=== PATIENT | male | born 1985 | race Caucasian/White ===

== ENCOUNTER 2018-01-12 16:26 | Emergency (ER) | payer SELFPAY ==
[~2018-01-12] VITALS: Ht 167.6 cm; Wt 74.4 kg
[~2018-01-12 16:26] MED LIST: ALB0.5 IH; ALBU2.5V36 INH; ALBU8.5H IH; BUDE1AMP2 IH; CEPH250C37 PO; CETI-176 PO; DUL100/5PT INH; DULERAPT INH; FLUT1DIS28 IH; IPRA3AMP21 IH; IPRA3AMP37 IH; METH4TAB66 PO; MONT10TA PO; PRED20TA6 PO; prednisone
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
[2018-01-12] MEDS ORDERED: IPRATROPIUM 0.5MG/2.5ML NEB NEB ONE (16:45)
[2018-01-12] MEDS ORDERED: ALBUTEROL 2.5 MG/0.5ML ER ONLY NEB ONE (16:45)
[2018-01-12] MEDS ORDERED: methylPREDNIS ACE 40MG/ML VIAL IM ONLY ONE (16:45)
[2018-01-12 18:00] VITALS: BP 109/89
== END 2018-01-12 18:12 | disposition home or self-care (01) ==
LOC: ER 16:37
DX: J45.901 Unspecified asthma with (acute) exacerbation (principal)
CPT/HCPCS: 94644; 96372; 99283; J1030; J7611; J7644

== ENCOUNTER 2018-02-05 09:13 | Emergency (ER) | payer SELFPAY ==
[~2018-02-05] VITALS: Ht 165.1 cm; Wt 74.8 kg
[2018-02-05] MEDS ORDERED: ALBUTEROL/IPRATROPIUM 3 ML NEB ONE (09:18)
[2018-02-05] MEDS ORDERED: ALBUTEROL/IPRATROPIUM 3 ML NEB NEB ONE (09:20)
[2018-02-05] MEDS ORDERED: ALBUTEROL 2.5 MG/3 ML NEB ONE (09:28)
[2018-02-05] MEDS ORDERED: predniSONE 20 MG TAB PO ONE (09:35)
--- NOTE | 2018-02-05 09:52 | ER Report ---
History and Physical Time Seen By MD: 09:15 Hx. of Stated Complaint: PT HAS HX OF ASTHMA, UNABLE TO AFFORD HIS SCRIPT. HAS INSP AND EXP WHEEZING HPI/ROS CHIEF COMPLAINT: Wheezing shortness of breath HISTORY OF PRESENT ILLNESS: 32-year-old male long history of brittle asthma multiple times of admissions no intubations comes emergency Department today with a complaint of wheezing and shortness of breath. Patient states she's been unable to obtain his rescue inhalers secondary to financial issues. Patient states was completely she's noticing worsening shortness of breath. Patient states that he has no chest pain mild nonproductive cough and worsening asthma type symptoms try to get his inhaler for this when he couldn't so came to the emergency room. Patient denies any additional complaints at this time REVIEW OF SYSTEMS: Respiratory: No cough wheezing shortness of breath Cardiovascular: No chest pain, no palpitations. Gastrointestinal: No vomiting, no abdominal pain. Musculoskeletal: No back pain. Remainder of the 14 system rev: Yes Allergies: Coded Allergies: No Known Drug Allergies (Unverified , 02/05/18) Home Meds Active Scripts Albuterol Sulfate 90 Mcg/Act (PROAIR HFA 90 MCG/ACT) 8.5 Gm Hfa.aer.ad, 1-2 PUFF IH 3-4XD, #1 INHALER Prov:GLENNY CHARLES PA-C 09/22/17 Ipratropium/Albuterol Sulfate (IPRAT-ALBUT 0.5-3(2.5) MG/3 ML) 3 Ml Ampul.neb, 3 ML IH QID Y for prn, #1 BOX Prov:GLENNY CHARLES PA-C 09/22/17 Reported Medications Cetirizine Hcl (ZYRTEC) 10 Mg Tablet, 10 MG PO QDAY, TAB 05/27/16 Discontinued Scripts Montelukast Sodium (SINGULAIR) 10 Mg Tablet, 1 TAB PO QDAY, #30 TAB Prov:GLENNY CHARLES PA-C 09/22/17 Montelukast Sodium (SINGULAIR) 10 Mg Tablet, 1 TAB PO QDAY, #30 TAB 2 Refills Prov:CHARLEEN BUSTILLO MD 07/01/16 Reviewed Nurses Notes: Yes Old Medical Records Reviewed: Yes Hx Smoking: No Smoking Status: Former Smoker Exposure to Second Hand Smoke?: No Hx Substance Use Disorder: No Hx Alcohol Use: Yes (RARE) Constitutional Vital Sign - Last 24 Hours 02/05/18 02/05/18 02/05/18 02/05/18 09:17 09:20 09:20 10:42 Temp 97.2 Pulse 87 92 91 Resp 24 18 18 B/P (MAP) 110/76 Pulse Ox 92 92 O2 Delivery Room Air Room Air Physical Exam General Appearance: The patient is alert, has no immediate need for airway protection and no current signs of toxicity. No respiratory distress but uncomfortable Eyes: Pupils equal and round no injection. Respiratory: Decreased breath sounds mild end expiratory wheeze in all wagoner Cardiac: regular rate and rhythm [ ] Gastrointestinal: Abdomen is soft and non tender, no masses, bowel sounds normal. Musculoskeletal: Neck: Neck is supple and non tender. Extremities have full range of motion and are non tender. Skin: No rashes or lesions. [ ] DIFFERENTIAL DIAGNOSIS: After history and physical exam differential diagnosis was considered for asthma exacerbation Medical Decision Making ED Course/Re-evaluation ED Course ED clinical course medical decision making this is a 32-year-old male came the emergency department with acute asthma exacerbation due to inability and noncompliance with medication received a DuoNeb steroids feels significantly better states "I cannot a marathon" patient be discharged abdomen inhaler to go we had social service evaluate his circumstances and he will have adequate follow-up to be sure is ample excessively to medication with primary care consultation patient doing much better Repeat peak flow greater than 300 patient be discharged Decision to Disposition Date: Feb 05, 2018 Decision to Disposition Time: 10:51 Depart Departure Latest Vital Signs Vital Signs Date Time Temp Pulse Resp B/P (MAP) Pulse Ox O2 Delivery O2 Flow Rate FiO2 02/05/18 10:42 91 18 02/05/18 09:20 92 Room Air 02/05/18 09:17 97.2 110/76 Impression: Primary Impression: Asthma Condition: Improved Disposition: HOME OR SELF-CARE Referrals: MARLON CHIANG MD 5 Days New Scripts Albuterol Sulfate (PROVENTIL HFA) 6.7 Gm Inh 1-2 PUFF INH 3-4XD for 10 Days, INH Prov: BASSAM GIANG MD 02/05/18 Prednisone (PREDNISONE) 20 Mg Tablet 20 MG PO QDAY for 10 Days, #10 TAB Prov: BASSAM GIANG MD 02/05/18 BASSAM GIANG MD Feb 05, 2018 09:52
[2018-02-05 10:30] VITALS: BP 135/91
[2018-02-05] MEDS ORDERED: ALB6.7R INH (10:53)
[2018-02-05] MEDS ORDERED: PRED20TA6 PO (10:53)
[2018-02-05] MEDS ORDERED: ALBUTEROL SULFATE 90 MCG/ACT 8.5 GM HNH INH PRN (10:55)
[2018-02-05] MEDS ORDERED: ALBUTEROL SULFATE 90 MCG/ACT 8.5 GM HNH INH ONE (11:00)
== END 2018-02-05 11:05 | disposition home or self-care (01) ==
LOC: ER 09:20
DX: J45.909 Unspecified asthma, uncomplicated (principal)
CPT/HCPCS: 94640; 94644; 99282; J7512; J7613; J7620

== ENCOUNTER 2018-05-12 18:25 | Emergency (ER) | payer SELFPAY ==
[~2018-05-12 18:25] MED LIST changes: +ALB6.7R INH
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
[2018-05-12] MEDS ORDERED: ALBUTEROL/IPRATROPIUM 3 ML NEB NEB ONE (18:40)
[2018-05-12] MEDS ORDERED: predniSONE 20 MG TAB PO ONE (18:40)
[2018-05-12] MEDS ORDERED: ALBUTEROL/IPRATROPIUM 3 ML NEB ONE (18:41)
[2018-05-12] MEDS ORDERED: ALBUTEROL 2.5 MG/3 ML NEB NEB ONE (19:35)
[2018-05-12] MEDS ORDERED: ALBUTEROL SULFATE 90 MCG/ACT 8.5 GM HNH INH ONE (19:35)
[2018-05-12] MEDS ORDERED: PRED20TA6 PO (19:36)
[2018-05-12] MEDS ORDERED: MONT10TA PO (19:36)
[2018-05-12] MEDS ORDERED: ALBU8.5H IH (19:37)
[2018-05-12] MEDS ORDERED: ALBU2.5V36 INH (19:37)
[2018-05-12 19:40] VITALS: BP 117/74
--- NOTE | 2018-05-12 19:43 | RADIOLOGY IMAGING REPORT ---
FACILITY: [facility] PATIENT NAME: Ben Mcguire : 1985 MR: [id number] V: [id number] EXAM DATE: ORDERING PHYSICIAN: OR[place]O LOCO TECHNOLOGIST[place] [facility] [place]gu[place] : 1985 Visit/Account:[id number] Date of Sevice: 05/12/2018 2 VIEWS CHEST INDICATION: Cough and wheezing. COMPARISON: 09/22/2017. FINDINGS: Cardiomediastinal silhouette and pulmonary vessels within normal limits. There is no focal infiltrate or lobar consolidation. There is no pneumothorax or pleural effusion. No nodule. Upper abdomen is unremarkable. No acute bony abnormality. IMPRESSION: 1. No acute cardiopulmonary process. Report Dictated By: Willam Sanders at 05/12/2018 7:38 PM Report E-Signed By: Willam Sanders at 05/12/2018 7:39 PM WSN:[id number]
== END 2018-05-12 19:51 | disposition home or self-care (01) ==
LOC: ER 18:48
DX: J45.41 Moderate persistent asthma with (acute) exacerbation (principal)
CPT/HCPCS: 71046; 94640; 99284; J7512; J7613; J7620

== ENCOUNTER 2018-07-15 11:54 | Emergency (ER) | payer SELFPAY ==
[~2018-07-15 11:54] MED LIST changes: +IPRA3AMP10 IH; -IPRA3AMP21 IH
[2018-07-15] MEDS ORDERED: ALBUTEROL/IPRATROPIUM 3 ML NEB ONE (12:06)
--- NOTE | 2018-07-15 12:09 | ER Report ---
History and Physical Time Seen By : 12:03 Hx. of Stated Complaint: PT PRESENTS WITH DYSPNEA AND WHEEZING FOR LAST COUPLE OF DAYS, HX OF ASTHMA AND IS OUT OF INHALER HPI/ROS CHIEF COMPLAINT: Shortness of breath, asthma exacerbation HISTORY OF PRESENT ILLNESS: 32-year-old male patient presents to emergency room with complaint of shortness of breath and asthma exacerbation. Patient states that he has a long-standing history of asthma. He states that he went to the doctor in the past for his asthma. He states that he is not had his chronic medication for this. He states he's been using rescue inhalers. He states that over the last couple days he states has significant shortness of breath. He states he is not been able to find a BRCA1 skin is also is documented previously. Patient states that he's not had any fevers, chills, nausea, vomiting or diarrhea. Patient denies having any productive cough. REVIEW OF SYSTEMS: Respiratory: As noted above Cardiovascular: No chest pain, no palpitations. Gastrointestinal: No vomiting, no abdominal pain. Musculoskeletal: No back pain. Allergies: Coded Allergies: No Known Drug Allergies (Unverified , 07/15/18) Home Meds Active Scripts Albuterol Sulfate (VENTOLIN HFA) 18 Gm Inh, 2 PUFF INH Q4-6H Y for SHORTNESS OF BREATH, #1 INH Prov:CAITLIN DUBON 07/15/18 Azithromycin 250 Mg Tab (AZITHROMYCIN 250 MG TAB) 250 Mg Tablet, 1 TAB PO QDAY, #6 TAB Take 2 tabs today and then 1 tab a day until gone. Prov:CAITLIN DUBON 07/15/18 Prednisone (PREDNISONE) 20 Mg Tablet, 20 MG PO BID, #10 TAB Prov:CAITLIN DUBON 07/15/18 Albuterol Sulfate 0.083% (ALBUTEROL SULFATE 0.083%) 2.5 Mg/3 Ml Vial.neb, 2.5 MG INH Q4-6H Y for SHORTNESS OF BREATH, #20 VIAL Prov:CAITLIN DUBON 07/15/18 Albuterol Sulfate 0.083% (ALBUTEROL SULFATE 0.083%) 2.5 Mg/3 Ml Vial.neb, 2.5 MG INH Q4H Y for WHEEZING, #1 BOX 0 Refills Prov:ORLANDO LOCO MD 05/12/18 Albuterol Sulfate 90 Mcg/Act (PROAIR HFA 90 MCG/ACT) 8.5 Gm Hfa.aer.ad, 2 PUFF IH Q4-6H, #1 INHALER 0 Refills Prov:ORLANDO LOCO MD 05/12/18 Montelukast Sodium (SINGULAIR) 10 Mg Tablet, 1 TAB PO QDAY, #30 TAB 0 Refills Prov:OR[place]O LOCO MD 05/12/18 Albuterol Sulfate (PROVENTIL HFA) 6.7 Gm Inh, 1-2 PUFF INH 3-4XD for 10 Days, INH Prov:BASSAM GIANG MD 02/05/18 Prednisone (PREDNISONE) 20 Mg Tablet, 20 MG PO QDAY for 10 Days, #10 TAB Prov:BASSAM GIANG MD 02/05/18 Ipratropium/Albuterol Sulfate (IPRAT-ALBUT 0.5-3(2.5) MG/3 ML) 3 Ml Ampul.neb, 3 ML IH QID Y for prn, #1 BOX Prov:GLENNY CHARLES PA-C 09/22/17 Reported Medications Cetirizine Hcl (ZYRTEC) 10 Mg Tablet, 10 MG PO QDAY, TAB 05/27/16 Discontinued Scripts Prednisone (PREDNISONE) 20 Mg Tablet, 60 MG PO QDAY, #12 TAB 0 Refills Prov:ORLANDO LOCO MD 05/12/18 Albuterol Sulfate 90 Mcg/Act (PROAIR HFA 90 MCG/ACT) 8.5 Gm Hfa.aer.ad, 1-2 PUFF IH 3-4XD, #1 INHALER Prov:GLENNY CHARLES PA-C 09/22/17 Past Medical/Surgical History Patient has a past medical history frequent bronchitis, asthma, pneumonia, reflux, rare alcohol use. Patient has a surgical history of tonsillectomy, adenoidectomy. Reviewed Nurses Notes: Yes Hx Smoking: No Smoking Status: Former Smoker Exposure to Second Hand Smoke?: No Hx Substance Use Disorder: No Hx Alcohol Use: Yes (RARE) Constitutional Vital Sign - Last 24 Hours 07/15/18 07/15/18 07/15/18 07/15/18 11:59 12:01 12:06 12:06 Temp 97.7 Pulse 82 76 Resp 16 20 B/P (MAP) 131/115 (120) 131/115 Pulse Ox 91 92 O2 Delivery Room Air Room Air 07/15/18 07/15/18 07/15/18 07/15/18 12:12 12:24 12:30 12:54 Pulse 74 80 68 Resp 16 6 13 B/P (MAP) 113/91 (98) Pulse Ox 90 91 07/15/18 07/15/18 07/15/18 13:00 13:24 13:30 Pulse 73 Resp 22 B/P (MAP) 112/83 (93) 118/88 (98) Pulse Ox 91 Physical Exam General Appearance: The patient is alert, has no immediate need for airway protection and no current signs of toxicity. Respiratory: Chest is non tender, lungs are tight with wheezing to auscultation. Cardiac: regular rate and rhythm Gastrointestinal: Abdomen is soft and non tender, no masses, bowel sounds normal. Musculoskeletal: Neck: Neck is supple and non tender. Extremities have full range of motion and are non tender. Skin: No rashes or lesions. DIFFERENTIAL DIAGNOSIS: After history and physical exam differential diagnosis was considered for asthma exacerbation, pneumonia, bronchitis. Medical Decision Making Data Points Result Diagram: 07/15/18 1203 07/15/18 1203 Laboratory Hematology Test 07/15/18 12:03 Red Blood Count 5.54 M/uL (4.00-5.60) Mean Corpuscular Volume 94.1 fL (80.0-96.0) Mean Corpuscular Hemoglobin 33.0 pg (26.0-33.0) Mean Corpuscular Hemoglobin Concent 35.0 g/dL (32.0-36.0) Red Cell Distribution Width 12.7 % (11.5-14.5) Mean Platelet Volume 8.8 fL (7.2-11.1) Neutrophils (%) (Auto) 46.1 % (39.4-72.5) Lymphocytes (%) (Auto) 29.4 % (17.6-49.6) Monocytes (%) (Auto) 12.9 % (4.1-12.4) Eosinophils (%) (Auto) 10.8 % (0.4-6.7) Basophils (%) (Auto) 0.8 % (0.3-1.4) Nucleated RBC Relative Count (auto) 0.1 /100WBC Neutrophils # (Auto) 3.8 K/uL (2.0-7.4) Lymphocytes # (Auto) 2.4 K/uL (1.3-3.6) Monocytes # (Auto) 1.1 K/uL (0.3-1.0) Eosinophils # (Auto) 0.9 K/uL (0.0-0.5) Basophils # (Auto) 0.1 K/uL (0.0-0.1) Nucleated RBC Absolute Count (auto) 0.01 K/uL Peripheral Blood Smear Yes Y/N Sodium Level 139 mmol/L (137-145) Potassium Level 4.3 mmol/L (3.5-5.0) Chloride Level 102 mmol/L (98-107) Carbon Dioxide Level 28 mmol/L (22-30) Blood Urea Nitrogen 12 mg/dl (9-21) Creatinine 0.80 mg/dl (0.66-1.25) Glomerular Filtration Rate Calc > 60.0 Random Glucose 95 mg/dl (75-110) Calcium Level 9.0 mg/dl (8.4-10.2) Total Bilirubin 0.7 mg/dl (0.2-1.3) Aspartate Amino Transf (AST/SGOT) 27 U/L (0-35) Alanine Aminotransferase (ALT/SGPT) 44 U/L (0-56) Alkaline Phosphatase 50 U/L (0-126) Total Protein 6.9 g/dl (6.3-8.2) Albumin 4.2 g/dl (3.5-5.0) Chemistry Test 07/15/18 12:03 White Blood Count 8.3 k/uL (4.5-11.0) Red Blood Count 5.54 M/uL (4.00-5.60) Hemoglobin 18.3 g/dL (14.0-18.0) Hematocrit 52.1 % (42.0-52.0) Mean Corpuscular Volume 94.1 fL (80.0-96.0) Mean Corpuscular Hemoglobin 33.0 pg (26.0-33.0) Mean Corpuscular Hemoglobin Concent 35.0 g/dL (32.0-36.0) Red Cell Distribution Width 12.7 % (11.5-14.5) Platelet Count 222 K/uL (150-450) Mean Platelet Volume 8.8 fL (7.2-11.1) Neutrophils (%) (Auto) 46.1 % (39.4-72.5) Lymphocytes (%) (Auto) 29.4 % (17.6-49.6) Monocytes (%) (Auto) 12.9 % (4.1-12.4) Eosinophils (%) (Auto) 10.8 % (0.4-6.7) Basophils (%) (Auto) 0.8 % (0.3-1.4) Nucleated RBC Relative Count (auto) 0.1 /100WBC Neutrophils # (Auto) 3.8 K/uL (2.0-7.4) Lymphocytes # (Auto) 2.4 K/uL (1.3-3.6) Monocytes # (Auto) 1.1 K/uL (0.3-1.0) Eosinophils # (Auto) 0.9 K/uL (0.0-0.5) Basophils # (Auto) 0.1 K/uL (0.0-0.1) Nucleated RBC Absolute Count (auto) 0.01 K/uL Peripheral Blood Smear Yes Y/N Glomerular Filtration Rate Calc > 60.0 Calcium Level 9.0 mg/dl (8.4-10.2) Total Bilirubin 0.7 mg/dl (0.2-1.3) Aspartate Amino Transf (AST/SGOT) 27 U/L (0-35) Alanine Aminotransferase (ALT/SGPT) 44 U/L (0-56) Alkaline Phosphatase 50 U/L (0-126) Total Protein 6.9 g/dl (6.3-8.2) Albumin 4.2 g/dl (3.5-5.0) EKG/Imaging Imaging 2 VIEWS CHEST INDICATION: Shortness of breath and chest tightness. Asthma. Previous smoking. COMPARISON: 05/12/2018. FINDINGS: Cardiomediastinal silhouette and pulmonary vessels within normal limits. There is no focal infiltrate or lobar consolidation. There is no pneumothorax or pleural effusion. No nodule. Upper abdomen is unremarkable. No acute bony abnormality. IMPRESSION: 1. No acute cardiopulmonary process. Report Dictated By: Willam Sanders at 07/15/2018 12:55 PM Report E-Signed By: Willam Sanders at 07/15/2018 12:57 PM ED Course/Re-evaluation ED Course Patient was admitted to exam room, history of physical were obtained. Differential diagnoses were considered. On examination lungs were tight, with wheezing. Patient received a DuoNeb inhaler, also received 125 mg sling at all. On reexamination patient had better air movement, less wheezing and stated he felt better. We did continue to watch him for 30 minutes. A CBC, CMP, chest x- ray were done. The labs were unremarkable, chest x-ray was negative. Patient states he still feels very good injury go home. We will go ahead and discharge him with some steroids, and inhaler as well as nebulizers. Patient is to follow- up with his primary care provider in the next month. He is to use the medications as needed. He is follow-up in the emergency room if condition worsens. Patient verbalized understanding and agreement with plan. Decision to Disposition Date: Jul 15, 2018 Decision to Disposition Time: 13:21 Depart Departure Latest Vital Signs Vital Signs Date Time Temp Pulse Resp B/P (MAP) Pulse Ox O2 Delivery O2 Flow Rate FiO2 07/15/18 13:30 118/88 (98) 07/15/18 13:24 73 22 91 07/15/18 12:06 Room Air 07/15/18 12:01 97.7 Impression: Primary Impression: Asthma Condition: Improved Disposition: HOME OR SELF-CARE New Scripts Albuterol Sulfate (VENTOLIN HFA) 18 Gm Inh 2 PUFF INH Q4-6H Y for SHORTNESS OF BREATH, #1 INH Prov: CAITLIN DUBON 07/15/18 Azithromycin 250 Mg Tab (AZITHROMYCIN 250 MG TAB) 250 Mg Tablet 1 TAB PO QDAY, #6 TAB Take 2 tabs today and then 1 tab a day until gone. Prov: CAITLIN DUBON 07/15/18 Prednisone (PREDNISONE) 20 Mg Tablet 20 MG PO BID, #10 TAB Prov: CAITLIN DUBON 07/15/18 Albuterol Sulfate 0.083% (ALBUTEROL SULFATE 0.083%) 2.5 Mg/3 Ml Vial.neb 2.5 MG INH Q4-6H Y for SHORTNESS OF BREATH, #20 VIAL Prov: CAITLIN DUBON 07/15/18 Patient Instructions: Asthma (ED) Additional Instructions: Increase fluid intake. Follow up with your primary care provider next month as scheduled. Return to the ER if condition worsens. Use medications as prescribed. Problem Qualifiers Primary Impression: Asthma Asthma severity: moderate Asthma persistence: persistent Asthma complication type: with acute exacerbation Qualified Codes: J45.41 - Moderate persistent asthma with (acute) exacerbation CAITLIN DUBON Jul 15, 2018 12:09
[2018-07-15] MEDS ORDERED: methylPREDNIS SUCC 125 MG/2ML IVP ONE (12:10)
[2018-07-15 12:19] LABS: PLATELET COUNT, AUTOMATED 222 K/uL (150-450)
--- NOTE | 2018-07-15 13:02 | RADIOLOGY IMAGING REPORT ---
[place] [facility] [place] NAME: Ben Mcguire : 1985 MR: [id number] V: [id number] EXAM DATE: ORDERING PHYSICIAN: CAITLIN DUBON [place]CHN[place] [facility] [place] Ben [place]gu[place] : 1985 Visit/Account:[id number] Date of Sevice: 07/15/2018 2 VIEWS CHEST INDICATION: Shortness of breath and chest tightness. Asthma. Previous smoking. COMPARISON: 05/12/2018. FINDINGS: Cardiomediastinal silhouette and pulmonary vessels within normal limits. There is no focal infiltrate or lobar consolidation. There is no pneumothorax or pleural effusion. No nodule. Upper abdomen is unremarkable. No acute bony abnormality. IMPRESSION: 1. No acute cardiopulmonary process. Report Dictated By: Willam Sanders at 07/15/2018 12:55 PM Report E-Signed By: Willam Sanders at 07/15/2018 12:57 PM WSN:[id number]
[2018-07-15] MEDS ORDERED: AZIT-18 PO (13:20)
[2018-07-15] MEDS ORDERED: PRED20TA6 PO (13:20)
[2018-07-15] MEDS ORDERED: ALBU2.5V36 INH (13:20)
[2018-07-15] MEDS ORDERED: ALB18R INH (13:20)
[2018-07-15 13:30] VITALS: BP 118/88
== END 2018-07-15 13:45 | disposition home or self-care (01) ==
LOC: ER 12:05
DX: J45.41 Moderate persistent asthma with (acute) exacerbation (principal)
CPT/HCPCS: 71046; 85025; 94640; 96374; 99283; J2930; J7620; 82040; 82247; 82310; 82374; 82435; 82565; 82947; 84075; 84132; 84155; 84295; 84450; 84460; 84520

== ENCOUNTER 2018-07-30 09:58 | Emergency (ER) | payer SELFPAY ==
[~2018-07-30 09:58] MED LIST changes: +ALB18R INH; +AZIT-18 PO
[2018-07-30] MEDS ORDERED: ALBUTEROL/IPRATROPIUM 3 ML NEB NEB ONE ×2 (10:00→11:50)
[2018-07-30] MEDS ORDERED: predniSONE 20 MG TAB PO ONE (10:00)
--- NOTE | 2018-07-30 10:09 | ER Report ---
History and Physical Time Seen By MD: 10:08 Hx. of Stated Complaint: WAS HERE A WEEK AGO FOR SIMILAR THING. TIGHT COUGH, SOB, NEBS DON'T SEEM TO BE WORKING. HPI/ROS CHIEF COMPLAINT: Shortness of breath asthma HISTORY OF PRESENT ILLNESS: 32-year-old male returns emergency Department seen here numerous times for asthma exacerbation due to lack of insurance he has a home nebulizer which she's been using the last couple days with little to no benefit using his albuterol rescue inhaler as well again with little benefit comes in today with 2 days of worsening asthma symptoms wheezing shortness of breath orthopnea no PND no chest pain no variation from his normal asthmatic issues sitting insurance a couple days ago follow-up with primary care patient denies any additional complaints at this time REVIEW OF SYSTEMS: Respiratory: Has no wheezing shortness of breath no cough Cardiovascular: No chest pain, no palpitations. Gastrointestinal: No vomiting, no abdominal pain. Musculoskeletal: No back pain. Remainder of the 14 system rev: Yes Allergies: Coded Allergies: No Known Drug Allergies (Unverified , 07/30/18) Home Meds Active Scripts Albuterol Sulfate (VENTOLIN HFA) 18 Gm Inh, 2 PUFF INH Q4-6H PRN for SHORTNESS OF BREATH, #1 INH Prov:CAITLIN DUBON 07/15/18 Azithromycin 250 Mg Tab (AZITHROMYCIN 250 MG TAB) 250 Mg Tablet, 1 TAB PO QDAY, #6 TAB Take 2 tabs today and then 1 tab a day until gone. Prov:CAITLIN DUBON 07/15/18 Albuterol Sulfate 0.083% (ALBUTEROL SULFATE 0.083%) 2.5 Mg/3 Ml Vial.neb, 2.5 MG INH Q4-6H PRN for SHORTNESS OF BREATH, #20 VIAL Prov:CAITLIN DUBON 07/15/18 Albuterol Sulfate 0.083% (ALBUTEROL SULFATE 0.083%) 2.5 Mg/3 Ml Vial.neb, 2.5 MG INH Q4H PRN for WHEEZING, #1 BOX 0 Refills Prov:ORLANDO LOCO MD 05/12/18 Albuterol Sulfate 90 Mcg/Act (PROAIR HFA 90 MCG/ACT) 8.5 Gm Hfa.aer.ad, 2 PUFF IH Q4-6H, #1 INHALER 0 Refills Prov:ORLANDO LOCO MD 05/12/18 Montelukast Sodium (SINGULAIR) 10 Mg Tablet, 1 TAB PO QDAY, #30 TAB 0 Refills Prov:ORLANDO LOCO MD 05/12/18 Albuterol Sulfate (PROVENTIL HFA) 6.7 Gm Inh, 1-2 PUFF INH 3-4XD for 10 Days, INH Prov:BASSAM GIANG MD 02/05/18 Ipratropium/Albuterol Sulfate (IPRAT-ALBUT 0.5-3(2.5) MG/3 ML) 3 Ml Ampul.neb, 3 ML IH QID PRN for prn, #1 BOX Prov:GLENNY CHARLES PA-C 09/22/17 Reported Medications Cetirizine Hcl (ZYRTEC) 10 Mg Tablet, 10 MG PO QDAY, TAB 05/27/16 Discontinued Scripts Prednisone (PREDNISONE) 20 Mg Tablet, 20 MG PO BID, #10 TAB Prov:CAITLIN DUBON 07/15/18 Prednisone (PREDNISONE) 20 Mg Tablet, 20 MG PO QDAY for 10 Days, #10 TAB Prov:BASSAM GIANG MD 02/05/18 Reviewed Nurses Notes: Yes Old Medical Records Reviewed: Yes Hx Smoking: No Smoking Status: Former Smoker Exposure to Second Hand Smoke?: No Hx Substance Use Disorder: No Hx Alcohol Use: Yes (RARE) Constitutional Vital Sign - Last 24 Hours 07/30/18 07/30/18 07/30/18 07/30/18 09:58 10:00 10:00 10:01 Temp 98.5 Pulse ??? 89 93 Resp 18 20 B/P (MAP) 120/93 Pulse Ox 93 89 O2 Delivery Nasal Cannula Room Air O2 Flow Rate 2.0 07/30/18 07/30/18 07/30/18 07/30/18 10:02 10:10 10:13 10:14 Pulse 99 96 Resp 18 22 B/P (MAP) 120/93 (102) Pulse Ox 95 O2 Flow Rate 2.0 07/30/18 07/30/18 07/30/18 07/30/18 10:15 10:28 10:30 10:43 Pulse 78 81 102 Resp 18 20 19 B/P (MAP) 120/90 (100) Pulse Ox 98 95 8/29/18 8/29/18 8/29/18 8/29/18 10:45 10:58 11:00 11:05 Pulse 85 85 84 Resp 18 20 19 B/P (MAP) 118/84 (95) Pulse Ox 96 97 07/30/18 07/30/18 11:17 11:20 Pulse 116 106 Resp 16 14 Pulse Ox 89 Physical Exam General Appearance: The patient is alert, has no immediate need for airway protection and no current signs of toxicity. No apparent distress. Short of breath Eyes: Pupils equal and round no injection. Respiratory: Bilateral symmetrical end expiratory wheezing coarse breath sounds throughout all lung wagoner no accessory muscle utilization no respiratory distress Cardiac: regular rate and rhythm [ ] Gastrointestinal: Abdomen is soft and non tender, no masses, bowel sounds normal. Musculoskeletal: Neck: Neck is supple and non tender. Extremities have full range of motion and are non tender. Skin: No rashes or lesions. [ ] DIFFERENTIAL DIAGNOSIS: After history and physical exam differential diagnosis was considered for asthma exacerbation Medical Decision Making ED Course/Re-evaluation ED Course ED clinical course medical decision making 32-year-old male who presents emergency department with asthma exacerbation received a DuoNeb and a 7 mm DuoNeb as well he combined peak flow was 180 which is at his baseline even though he's projected to go to 500 feeling significantly better we'll start him on prednisone as a by mouth and have him have primary care follow-up return if symptoms worsen Decision to Disposition Date: Jul 30, 2018 Decision to Disposition Time: 12:05 Depart Departure Latest Vital Signs Vital Signs Date Time Temp Pulse Resp B/P (MAP) Pulse Ox O2 Delivery O2 Flow Rate FiO2 07/30/18 11:20 106 14 89 07/30/18 11:00 118/84 (95) 07/30/18 10:14 2.0 07/30/18 10:01 98.5 Room Air Impression: Primary Impression: Asthma Additional Impression: Asthma with acute exacerbation in adult Condition: Improved Disposition: HOME OR SELF-CARE Referrals: TERRY CHARLES MD 5 Days New Scripts Prednisone (PREDNISONE) 20 Mg Tablet 60 MG PO QDAY, #12 0 Refills Prov: BASSAM GIANG MD 07/30/18 Patient Instructions: Asthma (DC) Problem Qualifiers BASSAM GIANG MD Jul 30, 2018 10:09
[2018-07-30] MEDS ORDERED: ALBUTEROL 2.5 MG/3 ML NEB ONE (10:16)
[2018-07-30] MEDS ORDERED: PRED20TA6 PO (12:06)
[2018-07-30 12:13] VITALS: BP 111/76
== END 2018-07-30 12:10 | disposition home or self-care (01) ==
LOC: ER 10:01
DX: J45.901 Unspecified asthma with (acute) exacerbation (principal)
CPT/HCPCS: 94640; 94644; 94667; 99284; J7512; J7613; J7620